=== PATIENT | female | born 1970 | race African-American/Black ===

== ENCOUNTER 2016-08-05 20:54 | Emergency (ER) | payer OTHER ==
--- NOTE | 2016-08-05 21:17 | ED NURSING NOTES ---
Clinical Report - Nurses [facility] [place] [address] 08/05/2016 20:55 Patient: RADHA YOUNG TRIAGE Triage time 21:04. Acuity: LEVEL 4. Chief Complaint: TOOTHACHE, JAW PAIN and (Pain in the ears, mostly in rt). Alert. No acute distress. --21:09 Rachell Gonzalez R.N. 21:04 08/05/16. BP: 129/74. HR: 68. RR: 20. O2 saturation: 98%. Temp: 98.8 F. Pain level now: 12/25. --21:09 Rachell Gonzalez R.N. 21:04 08/05/16. BP: 129/74. HR: 68. RR: 20. O2 saturation: 98%. Temp: 98.8 F. Pain level now: 12/25. --21:09 Rachell Gonzalez R.N. Weight: 74.8 kg stated. Height/Length: 65 inches Per Patient. BMI: 27.5. --21:08 Rachell Gonzalez R.N. Medications None. --21:06 Rachell Gonzalez R.N. Medication/allergy information source: the patient. --21:09 Rachell Gonzalez R.N. Allergies None. --21:07 Rachell Gonzalez R.N. History Arrived by private vehicle. Historian: patient. Primary physician ([facility]). ( drove self). This started today. She has no dental appointment scheduled. She has had moderate right ear pain and has had moderate left ear pain. She has had a toothache (left lower canine). She has had swelling of the face. 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 PAST MEDICAL HX: Immunizations: up-to-date. SOCIAL HX: Never smoker. No alcohol use or drug use. FALL RISK ASSESSMENT: Fall risk assessment completed. No fall risk identified. NUTRITIONAL RISK ASSESSMENT: The nutritional risk assessment revealed no deficiencies. FUNCTIONAL ASSESSMENT: Functional assessment: no impairments noted. LEARNING NEEDS ASSESSMENT: The learning needs assessment revealed no barriers. SKIN INTEGRITY ASSESSMENT: Skin integrity risk assessment completed. No skin integrity risk identified. --21:09 Rachell Gonzalez R.N. PROBLEMS: Stress. --21:07 Rachell Gonzalez R.N. ADDITIONAL SURGERIES: no known surgeries. Interventions ID band on patient. To room. --21:09 Rachell Gonzalez R.N. PHYSICAL ASSESSMENT Ambulatory to room. GENERAL / NEURO / PSYCH: Alert. Oriented X 4. Appears in pain. HEENT: Dental tenderness. Dental decay. Mucous membranes are pink. RESPIRATORY: Respirations not labored. CVS: Capillary refill less than 2 seconds. SKIN: Skin is warm and dry. Normal skin turgor. --21:10 Rachell Gonzalez R.N. NURSING PROGRESS NOTES Head of bed elevated. Two patient identifiers checked. Call light placed in reach. Side rails up x 1. Bed placed in lowest position. Brakes of bed on. Patient ready for evaluation. --21:10 Rachell Gonzalez R.N. 21:35 08/05/2016 Tylenol (Acetaminophen) PO 650 mg given. Allergies verified and confirmed 5 rights. --21:46 Rachell Gonzalez R.N. 21:35 08/05/2016 Amoxicillin PO 500 mg given. Allergies verified and confirmed 5 rights. --21:46 Rachell Gonzalez R.N. 21:36 08/05/2016 Motrin PO 800 mg given. Allergies verified and confirmed 5 rights. --21:46 Rachell Gonzalez R.N. DISPOSITION / DISCHARGE 21:45. Condition at departure: unchanged. No learning barriers present. Discharge instructions provided and reviewed with the patient. Reviewed medication(s) side effects, precautions, dosing and course information. Prescription(s) given to the patient. Patient verbalized understanding. Written instructions provided in Kittitian. The patient was discharged home. She left the Emergency Department ambulatory and via private vehicle. Patient driving. Medication list reviewed and validated. --21:47 Rachell Gonzalez R.N. 21:04 08/05/16. BP: 129/74. HR: 68. RR: 20. O2 saturation: 98%. Temp: 98.8 F. Pain level now: 12/25. --21:47 Rachell Gonzalez R.N. Locked/Released at 08/05/2016 21:48 by Rachell Gonzalez R.N.
--- NOTE | 2016-08-05 21:17 | ED CLINICAL REPORT ---
Clinical Report - Physicians/Mid Levels [facility] [address] [place] [address] 08/05/2016 20:55 Patient: RADHA YOUNG Time Seen: 2129. Arrived- By private vehicle. Historian- patient. HISTORY OF PRESENT ILLNESS Chief Complaint: DENTAL PAIN. This started today and is still present. The patient has had a sore throat. (Patient reports her pregnancies over the last 1 year, worsening pain today, radiating into the ear. Attempts to follow-up with the dental clinic, however they do not have any openings. Denies difficulty opening or closing the jaw. Reports irritation from cold air. Patient denies any difficulty swallowing or cough.). REVIEW OF SYSTEMS No difficulty breathing, chest pain or skin rash. All systems otherwise negative, except as recorded above. PAST HISTORY Problems: Stress. Additional Surgeries: no known surgeries. Medications: None. Allergies: None. SOCIAL HISTORY Never smoker. No alcohol use. ADDITIONAL NOTES The nursing notes have been reviewed. PHYSICAL EXAM Vital Signs: 08/05/2016 21:04 BP: 129/74. HR: 68. RR: 20. O2 saturation: 98%. Temp: 98.8 F. Pain level now: 9/10. Appearance: Alert. Head: Normal external inspection. ENT: Dental tenderness. Ears normal. Nose normal. Pharynx normal. Lips normal. Uvula midline. No trismus. (Right lower dental tenderness in the gumline of the lower premolar. No obvious dentin fracture visible. No palpable abscess.). Neck: Trachea midline. No adenopathy. CVS: Normal heart rate and rhythm. Heart sounds normal. Respiratory: No respiratory distress. Breath sounds normal. Skin: Normal skin color. No rash. PROGRESS AND PROCEDURES Course of Care: Uvula midline, no difficulty swallowing. Patient with no signs of Zaid's angina. No sore throat. Patient is stable. Symptoms better. Patient/family counseled. Disposition: Discharged. CLINICAL IMPRESSION Moderate dental pain. INSTRUCTIONS Drink plenty of fluids. Prescription Medications: Amoxicillin 500 mg tablets: take 1 orally every 8 hours for 10 days. No refills. Ibuprofen 800 mg tablets: take 1 tablet orally every 8 hours for 5 days, as needed for pain. Dispense fifteen (15). No refill. Follow-up: Follow up with a specialist. (Electronically signed by Miriam David P.A.-C 08/05/2016 22:16)
--- NOTE | 2016-08-05 21:17 | ED NURSING NOTES ---
Clinical Report - Nurses [facility] [place] [address] 08/05/2016 20:55 Patient: RADHA YOUNG TRIAGE Triage time 21:04. Acuity: LEVEL 4. Chief Complaint: TOOTHACHE, JAW PAIN and (Pain in the ears, mostly in rt). Alert. No acute distress. --21:09 Rachell Gonzalez R.N. 21:04 08/05/16. BP: 129/74. HR: 68. RR: 20. O2 saturation: 98%. Temp: 98.8 F. Pain level now: 12/25. --21:09 Rachell Gonzalez R.N. 21:04 08/05/16. BP: 129/74. HR: 68. RR: 20. O2 saturation: 98%. Temp: 98.8 F. Pain level now: 12/25. --21:09 Rachell Gonzalez R.N. Weight: 74.8 kg stated. Height/Length: 65 inches Per Patient. BMI: 27.5. --21:08 Rachell Gonzalez R.N. Medications None. --21:06 Rachell Gonzalez R.N. Medication/allergy information source: the patient. --21:09 Rachell Gonzalez R.N. Allergies None. --21:07 Rachell Gonzalez R.N. History Arrived by private vehicle. Historian: patient. Primary physician ([facility]). ( drove self). This started today. She has no dental appointment scheduled. She has had moderate right ear pain and has had moderate left ear pain. She has had a toothache (left lower canine). She has had swelling of the face. 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 PAST MEDICAL HX: Immunizations: up-to-date. SOCIAL HX: Never smoker. No alcohol use or drug use. FALL RISK ASSESSMENT: Fall risk assessment completed. No fall risk identified. NUTRITIONAL RISK ASSESSMENT: The nutritional risk assessment revealed no deficiencies. FUNCTIONAL ASSESSMENT: Functional assessment: no impairments noted. LEARNING NEEDS ASSESSMENT: The learning needs assessment revealed no barriers. SKIN INTEGRITY ASSESSMENT: Skin integrity risk assessment completed. No skin integrity risk identified. --21:09 Rachell Gonzalez R.N. PROBLEMS: Stress. --21:07 Rachell Gonzalez R.N. ADDITIONAL SURGERIES: no known surgeries. Interventions ID band on patient. To room. --21:09 Rachell Gonzalez R.N. PHYSICAL ASSESSMENT Ambulatory to room. GENERAL / NEURO / PSYCH: Alert. Oriented X 4. Appears in pain. HEENT: Dental tenderness. Dental decay. Mucous membranes are pink. RESPIRATORY: Respirations not labored. CVS: Capillary refill less than 2 seconds. SKIN: Skin is warm and dry. Normal skin turgor. --21:10 Rachell Gonzalez R.N. NURSING PROGRESS NOTES Head of bed elevated. Two patient identifiers checked. Call light placed in reach. Side rails up x 1. Bed placed in lowest position. Brakes of bed on. Patient ready for evaluation. --21:10 Rachell Gonzalez R.N. 21:35 08/05/2016 Tylenol (Acetaminophen) PO 650 mg given. Allergies verified and confirmed 5 rights. --21:46 Rachell Gonzalez R.N. 21:35 08/05/2016 Amoxicillin PO 500 mg given. Allergies verified and confirmed 5 rights. --21:46 Rachell Gonzalez R.N. 21:36 08/05/2016 Motrin PO 800 mg given. Allergies verified and confirmed 5 rights. --21:46 Rachell Gonzalez R.N. DISPOSITION / DISCHARGE 21:45. Condition at departure: unchanged. No learning barriers present. Discharge instructions provided and reviewed with the patient. Reviewed medication(s) side effects, precautions, dosing and course information. Prescription(s) given to the patient. Patient verbalized understanding. Written instructions provided in Niuean. The patient was discharged home. She left the Emergency Department ambulatory and via private vehicle. Patient driving. Medication list reviewed and validated. --21:47 Rachell Gonzalez R.N. 21:04 08/05/16. BP: 129/74. HR: 68. RR: 20. O2 saturation: 98%. Temp: 98.8 F. Pain level now: 12/25. --21:47 Rachell Gonzalez R.N. Locked/Released at 08/05/2016 21:48 by Rachell Gonzalez R.N.
--- NOTE | 2016-08-05 21:17 | ED CLINICAL REPORT ---
Clinical Report - Physicians/Mid Levels [facility] [address] [place] [address] 08/05/2016 20:55 Patient: RADHA YOUNG Time Seen: 2129. Arrived- By private vehicle. Historian- patient. HISTORY OF PRESENT ILLNESS Chief Complaint: DENTAL PAIN. This started today and is still present. The patient has had a sore throat. (Patient reports her pregnancies over the last 1 year, worsening pain today, radiating into the ear. Attempts to follow-up with the dental clinic, however they do not have any openings. Denies difficulty opening or closing the jaw. Reports irritation from cold air. Patient denies any difficulty swallowing or cough.). REVIEW OF SYSTEMS No difficulty breathing, chest pain or skin rash. All systems otherwise negative, except as recorded above. PAST HISTORY Problems: Stress. Additional Surgeries: no known surgeries. Medications: None. Allergies: None. SOCIAL HISTORY Never smoker. No alcohol use. ADDITIONAL NOTES The nursing notes have been reviewed. PHYSICAL EXAM Vital Signs: 08/05/2016 21:04 BP: 129/74. HR: 68. RR: 20. O2 saturation: 98%. Temp: 98.8 F. Pain level now: 9/10. Appearance: Alert. Head: Normal external inspection. ENT: Dental tenderness. Ears normal. Nose normal. Pharynx normal. Lips normal. Uvula midline. No trismus. (Right lower dental tenderness in the gumline of the lower premolar. No obvious dentin fracture visible. No palpable abscess.). Neck: Trachea midline. No adenopathy. CVS: Normal heart rate and rhythm. Heart sounds normal. Respiratory: No respiratory distress. Breath sounds normal. Skin: Normal skin color. No rash. PROGRESS AND PROCEDURES Course of Care: Uvula midline, no difficulty swallowing. Patient with no signs of Zaid's angina. No sore throat. Patient is stable. Symptoms better. Patient/family counseled. Disposition: Discharged. CLINICAL IMPRESSION Moderate dental pain. INSTRUCTIONS Drink plenty of fluids. Prescription Medications: Amoxicillin 500 mg tablets: take 1 orally every 8 hours for 10 days. No refills. Ibuprofen 800 mg tablets: take 1 tablet orally every 8 hours for 5 days, as needed for pain. Dispense fifteen (15). No refill. Follow-up: Follow up with a specialist. (Electronically signed by Miriam David P.A.-C 08/05/2016 22:16)
--- NOTE | 2016-08-05 21:17 | ED ORDER SUMMARY ---
..... Patient: RADHA YOUNG OrderSheet [facility] VisitID: [id number] [place] [address] 46y, F Registration Date/Time: 08/05/2016 ORDER SHEET Weight: 74.8 kg (stated) Allergies: None GENERAL ORDERS: MEDICATION ORDERS: Motrin PO 800 mg (NOW) (21:16 08/05/2016 EKoroleva P.A.-C) (Ack 21:35 SRoberts R.N.) (21:46 SRoberts R.N.) Tylenol PO 650 mg (NOW) (:16 08/05/2016 EKoroleva P.A.-C) (Ack 21:35 SRoberts R.N.) (21:46 SRoberts R.N.) Amoxicillin PO 500 mg (NOW) (:16 08/05/2016 EKoroleva P.A.-C) (Ack 21:35 SRoberts R.N.) (21:46 SRoberts R.N.) IV FLUIDS: ORDER SHEET NOTES: [Electronically signed by Rachell Gonzalez R.N. (21:48 08/05/2016)] [Electronically signed by Miriam David P.A.-C (22:16 08/05/2016)] [Electronically locked/signed by Rachell Gonzalez R.N. (21:48 08/05/2016)]
--- NOTE | 2016-08-05 21:17 | ED ORDER SUMMARY ---
..... Patient: RADHA YOUNG OrderSheet [facility] VisitID: [id number] [place] [address] 46y, F Registration Date/Time: 08/05/2016 ORDER SHEET Weight: 74.8 kg (stated) Allergies: None GENERAL ORDERS: MEDICATION ORDERS: Motrin PO 800 mg (NOW) (21:16 08/05/2016 EKoroleva P.A.-C) (Ack 21:35 SRoberts R.N.) (21:46 SRoberts R.N.) Tylenol PO 650 mg (NOW) (:16 08/05/2016 EKoroleva P.A.-C) (Ack 21:35 SRoberts R.N.) (21:46 SRoberts R.N.) Amoxicillin PO 500 mg (NOW) (:16 08/05/2016 EKoroleva P.A.-C) (Ack 21:35 SRoberts R.N.) (21:46 SRoberts R.N.) IV FLUIDS: ORDER SHEET NOTES: [Electronically signed by Rachell Gonzalez R.N. (21:48 08/05/2016)] [Electronically signed by Miriam David P.A.-C (22:16 08/05/2016)] [Electronically locked/signed by Rachell Gonzalez R.N. (21:48 08/05/2016)]
--- NOTE | 2016-08-05 22:16 | ED DISCHARGE INSTRUCTIONS ---
Patient: RADHA YOUNG General Instructions [facility] VisitID: [id number] [place] [address] 46y, F Registration Date/Time: 08/05/2016 Moderate dental pain. INSTRUCTIONS Drink plenty of fluids. Prescription Medications: Amoxicillin 500 mg tablets: take 1 orally every 8 hours for 10 days. No refills. Ibuprofen 800 mg tablets: take 1 tablet orally every 8 hours for 5 days, as needed for pain. Dispense fifteen (15). No refill. Follow-up: Follow up with a specialist. ADDITIONAL INFORMATION Dental Pain A crack or cavity in the tooth, which exposes the sensitive inner area of the tooth can cause tooth pain. An infection in the gum or the root of the tooth can cause pain and swelling. The pain is often made worse by drinking hot or cold fluids, or biting on hard foods. Pain may spread from the tooth to the ear or jaw on the same side. Home Care: Avoid hot and cold foods and liquids since your tooth may be sensitive to temperature changes. If your tooth is chipped or cracked, or if there is a large open cavity, apply OIL OF CLOVES (available lhyx-hgt-snwomog in drug stores) directly to the tooth to reduce pain. Some pharmacies carry an pzux-lwj-tiupdje "toothache kit." This contains a paste, which can be applied over the exposed tooth to decrease sensitivity. A cold pack on your jaw over the sore area may help reduce pain. You may use acetaminophen (Tylenol) or ibuprofen (Motrin, Advil) to control pain, unless another medicine was prescribed. [ NOTE: If you have chronic liver or kidney disease or ever had a stomach ulcer or GI bleeding, talk with your doctor before using these medicines.] If you have signs of an infection, an antibiotic will be given. Take it as directed. Follow-Up as directed with a dentist. Your pain may go away with the treatment given. However, only a dentist can fully evaluate and treat the cause and prevent the pain from coming back again. TOOTHACHE IS A SIGN OF DISEASE IN YOUR TOOTH AND SHOULD BE EXAMINED AND TREATED BY A DENTIST. Get Prompt Medical Attention if any of the following occur: Your face becomes swollen or red Pain worsens or spreads to the neck Fever over 100.4 F (38.0 C) Unusual drowsiness; headache or stiff neck; weakness or fainting Pus drains from the tooth Difficulty swallowing or breathing Amoxicillin Trihydrate Oral tablet What is this medicine? AMOXICILLIN (a mox i YOKASTA in) is a penicillin antibiotic. It is used to treat certain kinds of bacterial infections. It will not work for colds, flu, or other viral infections. How should I use this medicine? Take this medicine by mouth with a glass of water. Follow the directions on your prescription label. You may take this medicine with food or on an empty stomach. Take your medicine at regular intervals. Do not take your medicine more often than directed. Take all of your medicine as directed even if you think your are better. Do not skip doses or stop your medicine early. Talk to your street contractor regarding the use of this medicine in children. While this drug may be prescribed for selected conditions, precautions do apply. What side effects may I notice from receiving this medicine? Side effects that you should report to your doctor or health youth care professional as soon as possible: allergic reactions like skin rash, itching or hives, swelling of the face, lips, or tongue breathing problems dark urine redness, blistering, peeling or loosening of the skin, including inside the mouth seizures severe or watery diarrhea trouble passing urine or change in the amount of urine unusual bleeding or bruising unusually weak or tired yellowing of the eyes or skin Side effects that usually do not require medical attention (report to your doctor or health youth care professional if they continue or are bothersome): dizziness headache stomach upset trouble sleeping What may interact with this medicine? amiloride control pills chloramphenicol macrolides probenecid sulfonamides tetracyclines What if I miss a dose? If you miss a dose, take it as soon as you can. If it is almost time for your next dose, take only that dose. Do not take double or extra doses. Where should I keep my medicine? Keep out of the reach of children. Store between 68 and 77 degrees F (20 and 25 degrees C). Keep bottle closed tightly. Throw away any unused medicine after the expiration date. What should I tell my health care provider before I take this medicine? They need to know if you have any of these conditions: asthma kidney disease an unusual or allergic reaction to amoxicillin, other penicillins, cephalosporin antibiotics, other medicines, foods, dyes, or preservatives or trying to get breast-feeding What should I watch for while using this medicine? Tell your doctor or health youth care professional if your symptoms do not improve in 2 or 3 days. Take all of the doses of your medicine as directed. Do not skip doses or stop your medicine early. If you are diabetic, you may get a false positive result for sugar in your urine with certain brands of urine tests. Check with your doctor. Do not treat diarrhea with zmlx-nko-cwyorjk products. Contact your doctor if you have diarrhea that lasts more than 2 days or if the diarrhea is severe and watery. You have been given the following additional information: Dental Pain Amoxicillin Trihydrate Oral tablet (Electronically signed by Miriam David P.A.-C 08/05/2016 22:16)
--- NOTE | 2016-08-05 22:16 | ED MED RECONCILIATION SUMMARY ---
Patient: RADHA YOUNGRA Medication Reconciliation Report [facility] VisitID: [id number] [place] [address] 46y, F Registration Date/Time: 08/05/2016 Weight: 74.8 kg Height/Length: 65 in. BMI: 27.5 ALLERGIES: None The patient's Home Medications are listed below: NONE. The source(s) of the original Home Medication information: patient The following Medications were given to the patient in the Emergency Department: Motrin [PO] PO 800 mg, administered: 08/05/2016 9:36:00 PM Tylenol [PO] PO 650 mg, administered: 08/05/2016 9:35:00 PM Amoxicillin [PO] PO 500 mg, administered: 08/05/2016 9:35:00 PM The following Medications were prescribed to the patient: Amoxicillin 500 mg tablets: take 1 orally every 8 hours for 10 days. No refills. -- Miriam David, P.ALeoncio Ibuprofen 800 mg tablets: take 1 tablet orally every 8 hours for 5 days, as needed for pain. Dispense fifteen (15). No refill. -- Miriam David, P.A.-C
--- NOTE | 2016-08-05 22:16 | ED DISCHARGE INSTRUCTIONS ---
Patient: RADHA YOUNG General Instructions [facility] VisitID: [id number] [place] [address] 46y, F Registration Date/Time: 08/05/2016 Moderate dental pain. INSTRUCTIONS Drink plenty of fluids. Prescription Medications: Amoxicillin 500 mg tablets: take 1 orally every 8 hours for 10 days. No refills. Ibuprofen 800 mg tablets: take 1 tablet orally every 8 hours for 5 days, as needed for pain. Dispense fifteen (15). No refill. Follow-up: Follow up with a specialist. ADDITIONAL INFORMATION Dental Pain A crack or cavity in the tooth, which exposes the sensitive inner area of the tooth can cause tooth pain. An infection in the gum or the root of the tooth can cause pain and swelling. The pain is often made worse by drinking hot or cold fluids, or biting on hard foods. Pain may spread from the tooth to the ear or jaw on the same side. Home Care: Avoid hot and cold foods and liquids since your tooth may be sensitive to temperature changes. If your tooth is chipped or cracked, or if there is a large open cavity, apply OIL OF CLOVES (available [id number]-[id number] in drug stores) directly to the tooth to reduce pain. Some pharmacies carry an [id number] "toothache kit." This contains a paste, which can be applied over the exposed tooth to decrease sensitivity. A cold pack on your jaw over the sore area may help reduce pain. You may use acetaminophen (Tylenol) or ibuprofen (Motrin, Advil) to control pain, unless another medicine was prescribed. [ NOTE: If you have chronic liver or kidney disease or ever had a stomach ulcer or GI bleeding, talk with your doctor before using these medicines.] If you have signs of an infection, an antibiotic will be given. Take it as directed. Follow-Up as directed with a dentist. Your pain may go away with the treatment given. However, only a dentist can fully evaluate and treat the cause and prevent the pain from coming back again. TOOTHACHE IS A SIGN OF DISEASE IN YOUR TOOTH AND SHOULD BE EXAMINED AND TREATED BY A DENTIST. Get Prompt Medical Attention if any of the following occur: Your face becomes swollen or red Pain worsens or spreads to the neck Fever over 100.4 F (38.0 C) Unusual drowsiness; headache or stiff neck; weakness or fainting Pus drains from the tooth Difficulty swallowing or breathing Amoxicillin Trihydrate Oral tablet What is this medicine? AMOXICILLIN (a mox i YOKASTA in) is a penicillin antibiotic. It is used to treat certain kinds of bacterial infections. It will not work for colds, flu, or other viral infections. How should I use this medicine? Take this medicine by mouth with a glass of water. Follow the directions on your prescription label. You may take this medicine with food or on an empty stomach. Take your medicine at regular intervals. Do not take your medicine more often than directed. Take all of your medicine as directed even if you think your are better. Do not skip doses or stop your medicine early. Talk to your grocery department manager regarding the use of this medicine in children. While this drug may be prescribed for selected conditions, precautions do apply. What side effects may I notice from receiving this medicine? Side effects that you should report to your doctor or health primary care nurse as soon as possible: allergic reactions like skin rash, itching or hives, swelling of the face, lips, or tongue breathing problems dark urine redness, blistering, peeling or loosening of the skin, including inside the mouth seizures severe or watery diarrhea trouble passing urine or change in the amount of urine unusual bleeding or bruising unusually weak or tired yellowing of the eyes or skin Side effects that usually do not require medical attention (report to your doctor or health primary care nurse if they continue or are bothersome): dizziness headache stomach upset trouble sleeping What may interact with this medicine? amiloride control pills chloramphenicol macrolides probenecid sulfonamides tetracyclines What if I miss a dose? If you miss a dose, take it as soon as you can. If it is almost time for your next dose, take only that dose. Do not take double or extra doses. Where should I keep my medicine? Keep out of the reach of children. Store between 68 and 77 degrees F (20 and 25 degrees C). Keep bottle closed tightly. Throw away any unused medicine after the expiration date. What should I tell my health care provider before I take this medicine? They need to know if you have any of these conditions: asthma kidney disease an unusual or allergic reaction to amoxicillin, other penicillins, cephalosporin antibiotics, other medicines, foods, dyes, or preservatives or trying to get breast-feeding What should I watch for while using this medicine? Tell your doctor or health primary care nurse if your symptoms do not improve in 2 or 3 days. Take all of the doses of your medicine as directed. Do not skip doses or stop your medicine early. If you are diabetic, you may get a false positive result for sugar in your urine with certain brands of urine tests. Check with your doctor. Do not treat diarrhea with osgp-sko-bogiehx products. Contact your doctor if you have diarrhea that lasts more than 2 days or if the diarrhea is severe and watery. You have been given the following additional information: Dental Pain Amoxicillin Trihydrate Oral tablet (Electronically signed by Miriam David P.A.-C 08/05/2016 22:16)
--- NOTE | 2016-08-05 22:16 | ED MAR SUMMARY ---
..... Medication Administration Record [facility] [address] [place] [address] Patient: ARDHA YOUNG Visit ID: [id number] 46y, F Weight: 74.8 kg Height/Length: 65 in BMI: 27.5 ALLERGIES: None Given 21:08/05/2016 Rachell Gonzalez R.N. Medication Administered: TYLENOL [PO] (ACETAMINOPHEN), Dose: 650 mg PO. Medication Ordered: Tylenol PO 650 mg (NOW). Given :08/05/2016 Rachell Gonzalez R.N. Medication Administered: AMOXICILLIN [PO], Dose: 500 mg PO. Medication Ordered: Amoxicillin PO 500 mg (NOW). Given 21:08/05/2016 Rachell Gonzalez R.N. Medication Administered: MOTRIN [PO], Dose: 800 mg PO. Medication Ordered: Motrin PO 800 mg (NOW).
--- NOTE | 2016-08-05 22:16 | ED MAR SUMMARY ---
..... Medication Administration Record [facility] [address] [place] [address] Patient: RADHA YOUNG Visit ID: [id number] 46y, F Weight: 74.8 kg Height/Length: 65 in BMI: 27.5 ALLERGIES: None Given 21:08/05/2016 Rachell Gonzalez R.N. Medication Administered: TYLENOL [PO] (ACETAMINOPHEN), Dose: 650 mg PO. Medication Ordered: Tylenol PO 650 mg (NOW). Given :08/05/2016 Rachell Gonzalez R.N. Medication Administered: AMOXICILLIN [PO], Dose: 500 mg PO. Medication Ordered: Amoxicillin PO 500 mg (NOW). Given 21:08/05/2016 Rachell Gonzalez R.N. Medication Administered: MOTRIN [PO], Dose: 800 mg PO. Medication Ordered: Motrin PO 800 mg (NOW).
--- NOTE | 2016-08-05 22:16 | ED MED RECONCILIATION SUMMARY ---
Patient: RADHA YOUNGRA Medication Reconciliation Report [facility] VisitID: [id number] [address] [place] [address] 46y, F Registration Date/Time: 08/05/2016 Weight: 74.8 kg Height/Length: 65 in. BMI: 27.5 ALLERGIES: None The patient's Home Medications are listed below: NONE. The source(s) of the original Home Medication information: patient The following Medications were given to the patient in the Emergency Department: Motrin [PO] PO 800 mg, administered: 08/05/2016 9:36:00 PM Tylenol [PO] PO 650 mg, administered: 08/05/2016 9:35:00 PM Amoxicillin [PO] PO 500 mg, administered: 08/05/2016 9:35:00 PM The following Medications were prescribed to the patient: Amoxicillin 500 mg tablets: take 1 orally every 8 hours for 10 days. No refills. -- Miriam David, P.ALeoncio Ibuprofen 800 mg tablets: take 1 tablet orally every 8 hours for 5 days, as needed for pain. Dispense fifteen (15). No refill. -- Miriam David, P.A.-C
== END 2016-08-05 21:45 | disposition home or self-care (01) ==
LOC: ED SRH 20:54
DX: K08.89 Other specified disorders of teeth and supporting structures (principal)